=== PATIENT | male | born 1990 | race Caucasian/White ===

== ENCOUNTER 2022-04-30 08:33 | Outpatient (RCR) | payer OTHER, SELFPAY ==
[2022-04-30 09:18] VITALS: BP 130/77; PULSE 69; TEMP 36.6
--- NOTE | 2022-04-30 10:00 | HP.PCM_ITS ---
History of Present Illness Date of Service: 04/30/22 Chief Complaint: Left anterior lower extremity wound History of Wound: Patient is a 31-year-old male who presents to the wound care center for history of a left anterior lower extremity wound 2.5 years duration. Patient states that he was kicked by a horse creating a wound. Patient states the wound has failed to progress in healing despite various home remedies. He was following with his primary care physician and following recommendations for local wound care. Following failed progress of his wound he was referred to the wound care center for further intervention. ROS Constitutional Constitutional: Denies anorexia, chills, fatigue or fever(s) Eyes Eyes: Denies blurry vision, change in vision or double vision ENT HEENT: Denies dysphagia, headache(s) or nasal congestion Cardiovascular Cardiovascular: Denies chest pain, claudication or dyspnea Respiratory/Chest Respiratory/Chest: Denies cough, hemoptysis or shortness of breath with exertion Gastrointestinal Gastrointestinal: Denies abdominal pain, constipation, diarrhea, nausea or vomiting Genitourinary Genitourinary: Denies dysuria or hematuria Musculoskeletal Musculoskeletal: Denies joint pain, joint stiffness or joint swelling Integumentary Integumentary: Denies erythema, jaundice or rash Neurologic Neurologic: Denies dizziness, seizures or syncope Psychiatric Psychiatric: Denies anxiety or depression Endocrine Endocrinology: Denies cold intolerance, heat intolerance, polydipsia or polyuria Hematologic/Lymphatic Hematologic/Lymphatic: Denies easy bleeding or easy bruising Vital Signs Vital Signs Vital Signs: 04/30/22 09:18 Temperature 97.8 F Temperature Source Temporal Pulse Rate 69 Blood Pressure 130/77 H Blood Pressure Mean 94 Blood Pressure Source Monitor Blood Pressure Position Semi-Fowlers Blood Pressure Location Right Arm Physical Exam Const alert, oriented x3 and no apparent distress General Appearance: cooperative HEENT normocephalic Eyes General Eye: normal appearance of both eyes Neck General: normal visual inspection Lymph Lymphatic: no lymphadenopathy noted and no lymphedema noted Resp normal respiratory effort Cardio regular rate and regular rhythm Extremity normal capillary refill, no joint enlargement, no calf tenderness and no pedal edema Extremity Narrative: Weakly palpable DP and PT pulses of the left lower extremity with normal capillary fill time. There are 2 stable eschars noted to the anterior lower extremity 1 proximal and 1 distal. The distal eschar is friable and easily removable. There is hemosiderin deposition noted to the anterior lower extremity with torturous veins noted to the anterior medial calf and the lateral ankle with mild nonpitting edema noted to the left lower extremity. Skin skin turgor normal and no jaundice General Skin Exam: venous stasis and dermatitis Wound Narrative: There are 2 stable eschars noted to the anterior lower extremity 1 proximal and 1 distal. The distal eschar is friable and easily removable measuring 1.1 cm x 0.7 cm x 0.2 cm. There is hemosiderin deposition noted to the anterior lower extremity with torturous veins noted to the anterior medial calf and the lateral ankle with mild nonpitting edema noted to the left lower extremity. Neuro oriented x3 and moves all extremities Debridement Note Debridement Note Wound debrided: Left anterior lower extremity Laterality: Left Wound Grade/Stage: Montes stage I Type of Debridement: Excisional debridement Anesthesia Used: 5% Lidocaine Gel Depth: Down to and including healthy tissue and in the subcutaneous layer Percentage of wound debrided: 100 Instrument Used: 3mm curette Tissue Removed: Fibrous, devitalized subcutaneous, biofilm, slough Severity: Fat Layer Exposed Amount of bleeding with debridement: Mild Bleeding Controlled with: Compression and gauze Patient tolerated procedure: Patient tolerated procedure well Post-Debridement Measurements and Additional Note: Post-Debridement Measurements/Treatment - Nurse 1 - General Ulcer Assessment Start: 04/30/22 09:18 Freq: Status: Active Protocol: MACEY Activity Type Activity Date Activity User E-sign Co-sign Detail Recorded Client Recorded Date Recorded By Document 04/30/22 09:18 TARAH [id number] 04/30/22 09:23 TARAH 04/30/22 09:18 - Today's Visit Information Type of service Initial Visit Arrival Mode Ambulatory Patient Identification Verified (Name & Yes ) Vital Signs Temperature (97.8 F-99.1 F) 97.8 F Temperature Source Temporal Pulse Rate (60-100) 69 Pulse Location Monitor Blood Pressure (90/60-120/80) 130/77 H Blood Pressure Mean 94 Source Monitor Position Semi-Fowlers Blood Pressure Location Right Arm History Since Last Visit- (Skip if this is Patient's initial visit) Have you changed medications since your No last visit? Any new allergies or adverse reactions No Had a fall/change in ADL's that may No increase risk of falls Signs or symptoms of abuse and/or No neglect since last visit Have you been in the hospital since your No last visit? Has dressing in place as prescribed No Has compression in place as prescribed N/A Has offloadiing in place as prescribed N/A Experienced any changes in pain level or No management Left Footwear Regular Shoe Right Footwear Regular Shoe Pain Scale: 0-10 Numeric Is Patient Pain Free? Yes WC - Nurse 1 - General Ulcer Measurement Start: 04/30/22 09:18 Freq: Status: Active Protocol: Activity Type Activity Date Activity User E-sign Co-sign Detail Recorded Client Recorded Date Recorded By Document 04/30/22 09:18 KR [id number] 04/30/22 09:23 KR 04/30/22 09:18 Wound Center Nurse 1 #1 Left Martinez -Current Size (cm) - Length 4 -Current Size (cm) - Width 5 -Current Size (cm) - Depth 0.1 -Total Square Cm 20 -Exudate Amt Small -Exudate Type Serosanguineous -Wound Margin Distinct, Outline Attached -Granulation Amt None Present (0 %) -Necrosis Amt None Present (0 %) -Texture (Kathryn-wound Skin Appearance) Assessed, Scarring -Moisture (Kathryn-wound Skin Appearance) Assessed,Dry/ Scaly -Color (Kathryn-wound Skin Appearance) No Abnormality, Assessed -Temperature (Kathryn-wound Skin No Abnormality Appearance) (Pt Warm) -Tenderness on Palpation (Kathryn-wound No Skin Appearance) -Ulcer Cleansing Rinsed/ Irrigated with Saline -Foul Odor after Cleansing No -Anesthetic Used 5% Lidocaine Gel Left Calf (cm) 40.1 Left Ankle (cm) 23.6 Assessment/Plan Assessment/Plan (1) Non-pressure chronic ulcer of left calf with fat layer exposed: CODE(S): L97.222 - Non-pressure chronic ulcer of left calf with fat layer exposed (2) Venous insufficiency (chronic) (peripheral): CODE(S): I87.2 - Venous insufficiency (chronic) (peripheral) (3) Varicose veins of left leg with edema: CODE(S): I83.892 - Varicose veins of left lower extremity with other complications PLAN: Plan Patient seen and evaluated It is noted he has hemosiderin deposition to the anterior lower extremity with torturous veins noted to the anterior medial calf and the lateral ankle with mild nonpitting edema noted to the left lower extremity. Left anterior lower ex tremity ulceration measures 1.1 cm x 0.7 cm x 0.2 cm. Ulceration underwent debridement as noted in clinical panel above. No signs of infection to the ulcerative site. Collagen powder PMHB dressing applied to left lower extremity with Unna boot. Patient was instructed not to get the dressings wet and apply a cast bag during shower. Due to his chronic venous insufficiency/stasis with torturous veins I am making referral to vascular specialist Dr. Wu for further intervention. Patient instructed to continue to elevate lower extremities at all times of rest. And keep dressings clean, dry, and intact. He will follow-up to the wound care center in 1 week for continued local wound care. He may call sooner with any questions or concerns Note: [employer] speech recognition manager process improvement software was used to create portions of this document. Sound-alike and misspelled words, as well as other manager process improvement errors may be contained in the documentation. The problems addressed require a low medical decision making level which includes two or more minor problems, a stable chronic illness, or an acute uncomplicated illness or injury. The medical decision making level is low. There is noted low risk of morbidity after considering this treatment plan and diagnostic data.
== END 2022-05-01 23:59 | disposition home or self-care (01) ==
LOC: WC 08:33
PROVIDERS: PCP Family Medicine; Visit Provider Student in an Organized Health Care Education/Training Program
DX: I83.022 Varicose veins of left lower extremity with ulcer of calf (principal); L97.222 Non-pressure chronic ulcer of left calf with fat layer exposed
CPT/HCPCS: 11042; 29580; 99213; G0463

== ENCOUNTER 2022-05-28 11:15 | Outpatient (RCR) | payer OTHER, SELFPAY ==
[2022-05-02 01:51] VITALS: BP 130/77; PULSE 69; TEMP 36.6
[2022-05-07 09:37] VITALS: BP 138/65; PULSE 66; TEMP 36.2
--- NOTE | 2022-05-07 10:04 | PN.PCM_ITS ---
History of Present Illness Date of Service: 05/07/22 Chief Complaint: Left anterior lower extremity wound History of Wound: Patient is a 31-year-old male who presents to the wound care center for history of a left anterior lower extremity wound 2.5 years duration. Patient states that he was kicked by a horse creating a wound. Patient states the wound has failed to progress in healing despite various home remedies. He was following with his primary care physician and following recommendations for local wound care. Following failed progress of his wound he was referred to the wound care center for further intervention. Subjective Subjective Patient is a 31-year-old male who presents for follow-up of a left anterior lower extremity ulceration. He has chronic venous insufficiency with torturous varicose veins. Patient states that he just saw Dr. Wu, vascular specialist who recommended aggressive compression. Patient denies any constitutional symptoms today. Patient denies any further complaints today. Objective Data Objective Data Vital Signs: Vital Signs Temp Pulse BP 97.2 F L 66 138/65 H 05/07/22 09:37 05/07/22 09:37 05/07/22 09:37 Physical Exam Const alert, oriented x3 and no apparent distress General Appearance: cooperative HEENT normocephalic Eyes General Eye: normal appearance of both eyes Neck General: normal visual inspection Lymph Lymphatic: no lymphadenopathy noted and no lymphedema noted Resp normal respiratory effort Cardio regular rate and regular rhythm Extremity normal capillary refill, no joint enlargement and no calf tenderness Extremity Narrative: Weakly palpable DP and PT pulses of the left lower extremity with normal capillary fill time.? There are 2 stable eschars noted to the anterior lower extremity 1 proximal and 1 distal.? The distal eschar is friable and easily removable.? There is hemosiderin deposition noted to the anterior lower extremity with torturous veins noted to the anterior medial calf and the lateral ankle with mild nonpitting edema noted to the left lower extremity. Skin no rashes or lesions noted, skin turgor normal and no jaundice General Skin Exam: venous stasis and dermatitis Wound Narrative: There are 2 stable eschars noted to the anterior lower extremity 1 proximal and 1 distal.? The distal eschar is friable and easily removable measuring 1.0 cm x 0.5 cm x 0.2 cm.? There is hemosiderin deposition noted to the anterior lower extremity with torturous veins noted to the anterior medial calf and the lateral ankle with mild nonpitting edema noted to the left lower extremity. Neuro oriented x3 and moves all extremities Debridement Note Debridement Note Wound debrided: Left anterior lower extremity Laterality: Left Wound Grade/Stage: Montes stage I Type of Debridement: Excisional debridement Anesthesia Used: 5% Lidocaine Gel Depth: Down to and including healthy tissue and in the subcutaneous layer Percentage of wound debrided: 100 Instrument Used: 3mm curette Tissue Removed: Fibrous, devitalized subcutaneous, biofilm, slough Severity: Fat Layer Exposed Amount of bleeding with debridement: Mild Bleeding Controlled with: Compression and gauze Patient tolerated procedure: Patient tolerated procedure well Post-Debridement Measurements and Additional Note: Post-Debridement Measurements/Treatment - Nurse 1 - General Ulcer Assessment Start: 05/07/22 09:37 Freq: Status: Active Protocol: MACEY Activity Type Activity Date Activity User E-sign Co-sign Detail Recorded Client Recorded Date Recorded By Document 05/07/22 09:37 TARAH [id number] 05/07/22 09:39 TARAH 05/07/22 09:37 WC - Today's Visit Information Type of service Follow-up Visit (Physician/CLIENT SERVICES DIRECTOR ) Arrival Mode Ambulatory Patient Identification Verified (Name & Yes ) Vital Signs Temperature (97.8 F-99.1 F) 97.2 F L Temperature Source Temporal Pulse Rate (60-100) 66 Pulse Location Monitor Blood Pressure (90/60-120/80) 138/65 H Blood Pressure Mean (mm Hg) 89 Source Monitor Position Sitting Blood Pressure Location Right Arm History Since Last Visit- (Skip if this is Patient's initial visit) Have you changed medications since your No last visit? Any new allergies or adverse reactions No Had a fall/change in ADL's that may No increase risk of falls Signs or symptoms of abuse and/or No neglect since last visit Have you been in the hospital since your No last visit? Has dressing in place as prescribed Yes Has compression in place as prescribed Yes Has offloadiing in place as prescribed N/A Experienced any changes in pain level or No management Left Footwear Regular Shoe Right Footwear Regular Shoe Pain Scale: 0-10 Numeric Is Patient Pain Free? Yes LASHELL - Nurse 1 - General Ulcer Measurement Start: 05/07/22 09:37 Freq: Status: Active Protocol: Activity Type Activity Date Activity User E-sign Co-sign Detail Recorded Client Recorded Date Recorded By Document 05/07/22 09:37 KR [id number] 05/07/22 09:39 TARAH 05/07/22 09:37 Wound Center Nurse 1 #1 Left Martinez -Current Size (cm) - Length 1 -Current Size (cm) - Width 0.6 -Current Size (cm) - Depth 0.2 -Total Square Cm 0.6 -Exudate Amt Medium -Exudate Type Serosanguineous -Wound Margin Distinct, Outline Attached -Granulation Amt Medium (34-66%) -Granulation Quality Schubert,Red -Necrosis Amt Medium (34-66%) -Necrotic Tissue Type Adherent Slough -Texture (Kathryn-wound Skin Appearance) Assessed, Scarring -Moisture (Kathryn-wound Skin Appearance) No Abnormality, Assessed -Color (Kathryn-wound Skin Appearance) No Abnormality, Assessed -Temperature (Kathryn-wound Skin No Abnormality Appearance) (Pt Warm) -Tenderness on Palpation (Kathryn-wound No Skin Appearance) -Ulcer Cleansing Soap and Water -Foul Odor after Cleansing No -Anesthetic Used 5% Lidocaine Gel Assessment/Plan Assessment/Plan (1) Non-pressure chronic ulcer of left calf with fat layer exposed: CODE(S): L97.222 - Non-pressure chronic ulcer of left calf with fat layer exposed (2) Venous insufficiency (chronic) (peripheral): CODE(S): I87.2 - Venous insufficiency (chronic) (peripheral) (3) Varicose veins of left leg with edema: CODE(S): I83.892 - Varicose veins of left lower extremity with other complications PLAN: Plan Patient seen and evaluated It is noted he has hemosiderin deposition to the anterior lower extremity with torturous veins noted to the anterior medial calf and the lateral ankle with mild nonpitting edema noted to the left lower extremity.? Left anterior lower extremity ulceration measures 1.0 cm x 0.5 cm x 0.2 cm.? Ulceration demonstrates reduction in size versus previous visit. Ulceration underwent debridement as noted in clinical panel above.? No signs of infection to the ulcerative site.? Collagen powder PMHB dressing applied to left lower extremity with 2 layer compression dressing.? Patient was instructed not to get the dressings wet and apply a cast bag during shower. Patient saw Dr. Wu, vascular specialist who recommended aggressive compression to address his chronic venous insufficiency with torturous varicose veins. Dr. Wu will perform venous studies. Patient instructed to continue to elevate lower extremities at all times of rest.? And keep dressings clean, dry, and intact. He will follow-up to the wound care center in 1 week for continued local wound care.? He may call sooner with any questions or concerns Note: [employer] speech recognition rail car loader software was used to create portions of this document. Sound-alike and misspelled words, as well as other rail car loader errors may be contained in the documentation.? The problems addressed require a low medical decision making level which includes two or more minor problems, a stable chronic illness, or an acute uncom plicated illness or injury.? The medical decision making level is low.? There is noted low risk of morbidity after considering this treatment plan and diagnostic data.
[2022-05-14 10:52] VITALS: BP 122/75; PULSE 72; TEMP 36.4
--- NOTE | 2022-05-14 11:51 | PN.PCM_ITS ---
History of Present Illness Date of Service: 05/14/22 Chief Complaint: Left anterior lower extremity wound History of Wound: Patient is a 31-year-old male who presents to the wound care center for history of a left anterior lower extremity wound 2.5 years duration. Patient states that he was kicked by a horse creating a wound. Patient states the wound has failed to progress in healing despite various home remedies. He was following with his primary care physician and following recommendations for local wound care. Following failed progress of his wound he was referred to the wound care center for further intervention. Subjective Subjective Patient is a 31-year-old male who presents for follow-up of a left anterior lower extremity ulceration.? He has chronic venous insufficiency with torturous varicose veins. He has been applying collagen powder and PHMB dressing daily. Patient denies any constitutional symptoms today.? Patient denies any further complaints today. Objective Data Objective Data Vital Signs: Vital Signs Temp Pulse BP 97.6 F L 72 122/75 H 05/14/22 10:52 05/14/22 10:52 05/14/22 10:52 Physical Exam Const alert, oriented x3 and no apparent distress General Appearance: cooperative HEENT normocephalic Eyes General Eye: normal appearance of both eyes Neck General: normal visual inspection Lymph Lymphatic: no lymphadenopathy noted and no lymphedema noted Resp normal respiratory effort Cardio regular rate and regular rhythm Extremity normal capillary refill, no joint enlargement and no calf tenderness Extremity Narrative: Weakly palpable DP and PT pulses of the left lower extremity with normal capillary fill time.? There are 2 stable eschars noted to the anterior lower extremity 1 proximal and 1 distal.? The distal eschar is friable and easily removable.? There is hemosiderin deposition noted to the anterior lower extremity with torturous veins noted to the anterior medial calf and the lateral ankle with mild nonpitting edema noted to the left lower extremity. Skin no rashes or lesions noted, skin turgor normal and no jaundice General Skin Exam: venous stasis and dermatitis Wound Narrative: There are 2 stable eschars noted to the anterior lower extremity 1 proximal.? Ulceration left anterior lower extremity. No signs of infection. Healthy granular base.? There is hemosiderin deposition noted to the anterior lower extremity with torturous veins noted to the anterior medial calf and the lateral ankle with mild nonpitting edema noted to the left lower extremity. Neuro oriented x3 and moves all extremities Debridement Note Debridement Note Post-Debridement Measurements and Additional Note: Post-Debridement Measurements/Treatment WC - Nurse 1 - General Ulcer Assessment Start: 05/07/22 09:37 Freq: Status: Active Protocol: MACEY Activity Type Activity Date Activity User E-sign Co-sign Detail Recorded Client Recorded Date Recorded By Document 05/07/22 09:37 TARAH [id number] 05/07/22 09:39 KR Document 05/14/22 10:52 TARAH [id number] 05/14/22 10:55 KR 05/07/22 05/14/22 09:37 10:52 WC - Today's Visit Information Type of service Follow-up Visit Follow-up Visit (Physician/CRANIOLOGIST (Physician/CRANIOLOGIST ) ) Arrival Mode Ambulatory Ambulatory Patient Identification Verified (Name & Yes Yes ) Vital Signs Temperature (97.8 F-99.1 F) 97.2 F L 97.6 F L Temperature Source Temporal Temporal Pulse Rate (60-100) 66 72 Pulse Location Monitor Monitor Blood Pressure (90/60-120/80) 138/65 H 122/75 H Blood Pressure Mean (mm Hg) 89 90 Source Monitor Monitor Position Sitting Semi-Fowlers Blood Pressure Location Right Arm Right Arm History Since Last Visit- (Skip if this is Patient's initial visit) Have you changed medications since your No No last visit? Any new allergies or adverse reactions No No Had a fall/change in ADL's that may No No increase risk of falls Signs or symptoms of abuse and/or No No neglect since last visit Have you been in the hospital since your No No last visit? Has dressing in place as prescribed Yes Yes Has compression in place as prescribed Yes Yes Has offloadiing in place as prescribed N/A N/A Experienced any changes in pain level or No No management Left Footwear Regular Shoe Regular Shoe Right Footwear Regular Shoe Regular Shoe Pain Scale: 0-10 Numeric Is Patient Pain Free? Yes Yes - Nurse 1 - General Ulcer Measurement Start: 05/07/22 09:37 Freq: Status: Active Protocol: Activity Type Activity Date Activity User E-sign Co-sign Detail Recorded Client Recorded Date Recorded By Document 05/07/22 09:37 TARAH [id number] 05/07/22 09:39 KR Document 05/14/22 10:52 KR [id number] 05/14/22 10:55 KR 05/07/22 05/14/22 09:37 10:52 Wound Center Nurse 1 #1 Left Martinez -Current Size (cm) - Length 1 6.5 -Current Size (cm) - Width 0.6 1 -Current Size (cm) - Depth 0.2 0.2 -Total Square Cm 0.6 6.5 -Exudate Amt Medium Medium -Exudate Type Serosanguineous Serosanguineous -Wound Margin Distinct, Distinct, Outline Outline Attached Attached -Granulation Amt Medium (34-66%) Medium (34-66%) -Granulation Quality Almedia,Red Almedia -Necrosis Amt Medium (34-66%) Small (1-33%) -Necrotic Tissue Type Adherent Slough Adherent Slough -Texture (Kathryn-wound Skin Appearance) Assessed, No Abnormality, Scarring Scarring -Moisture (Kathryn-wound Skin Appearance) No Abnormality, No Abnormality, Assessed Assessed -Color (Kathryn-wound Skin Appearance) No Abnormality, No Abnormality, Assessed Assessed -Temperature (Kathryn-wound Skin No Abnormality No Abnormality Appearance) (Pt Warm) (Pt Warm) -Tenderness on Palpation (Kathryn-wound No No Skin Appearance) -Ulcer Cleansing Soap and Water Rinsed/ Irrigated with Saline -Foul Odor after Cleansing No No -Anesthetic Used 5% Lidocaine 5% Lidocaine Gel Gel WC - Nurse 2 - General Ulcer CM Notes Start: 05/07/22 09:37 Freq: Status: Active Protocol: Activity Type Activity Date Activity User E-sign Co-sign Detail Recorded Client Recorded Date Recorded By Document 05/07/22 12:37 SONIA [id number] 05/07/22 12:38 SONIA 05/07/22 12:37 Wound Center Nurse 2 -Time 10:20 -Correct Patient Yes -Correct Side, Site, Position Yes -Correct Procedure Yes -Procedure Performed Yes -Type of Procedure Debridement -Clinical Debridement Subcutaneous -Tissue Removed Subcutaneous -Post Debridement (cm) - Length 1.0 -Post Debridement (cm) - Width 0.5 -Post Debridement (cm) - Depth 0.1 -Total Square (Post) (cm) 0.50 -Area of Debridement (cm) - Length 1.0 -Area of Debridement (cm) - Width 0.5 -Total Square (Area) (cm) 0.50 -Tunneling No -Undermining/Tunneling No -Circular Undermining No -Wound/Ulcer Outcome Not Healed -Ulcer Cleansing Rinsed/ Irrigated with Saline -Foul Odor after Cleansing No -Bioengineered Tissue No -Bleeding Controlled with Pressure -Treatment Response Procedure Tolerated Well -Debridement - Subq, 1st 20sq cm Yes Pain Scale: 0-10 Numeric Is Patient Pain Free? Yes WC - Nurse 3 - General Ulcer D/C NN Start: 05/07/22 09:37 Freq: Status: Active Protocol: Activity Type Activity Date Activity User E-sign Co-sign Detail Recorded Client Recorded Date Recorded By Document 05/07/22 11:09 TARAH [id number] 05/07/22 11:10 TARAH 05/07/22 11:09 Wound Care Nurse 3 #1 Left Martinez -Ulcer Cleansing Rinsed/ Irrigated with Saline -Foul Odor after Cleansing No -Negative Pressure Wound Therapy N/A -Other Dressing collagen PMB -Primary Dressing Covered/Secured with Dry Gauze Right -Multi-Layered Wrap Application Multi-Layer Comp - Right ($ ) Pain Scale: 0-10 Numeric Is Patient Pain Free? Yes WC - Visit Discharge Discharge Condition Stable Ambulatory Status Ambulatory Transportation Private Auto Medication Reconcilliation completed & Yes provided to patient/care provider Clinical Summary of Care Provided Yes Assessment/Plan Assessment/Plan (1) Non-pressure chronic ulcer of left calf with fat layer exposed: CODE(S): L97.222 - Non-pressure chronic ulcer of left calf with fat layer exposed (2) Venous insufficiency (chronic) (peripheral): CODE(S): I87.2 - Venous insufficiency (chronic) (peripheral) (3) Varicose veins of left leg with edema: CODE(S): I83.892 - Varicose veins of left lower extremity with other complications PLAN: Plan Patient seen and evaluated It is noted he has hemosiderin deposition to the anterior lower extremity with torturous veins noted to the anterior medial calf and the lateral ankle with mild nonpitting edema noted to the left lower extremity.? Left anterior lower extremity ulceration measures 1.3 cm x 0.9 cm x 0.1 cm.? Ulceration demonstrates reduction in size versus previous visit and is granulating in well. Ulceration underwent debridement as noted in clinical panel above.? No signs of infection to the ulcerative site.? Collagen powder PMHB dressing applied to left lower extremity with 2 layer compression dressing.? Patient was instructed not to get the dressings wet and apply a cast bag during shower. Patient saw Dr. Wu, vascular specialist who recommended aggressive compression to address his chronic venous insufficiency with torturous varicose veins. Dr. Wu will perform venous studies. Patient instructed to continue to elevate lower extremities at all times of rest.? And keep dressings clean, dry, and intact. He will follow-up to the wound care center in 1 week for continued local wound care.? He may call sooner with any questions or concerns Note: Scaffold speech recognition food safety field specialist software was used to create portions of this document. Sound-alike and misspelled words, as well as other food safety field specialist errors may be contained in the documentation.? The problems addressed require a low medical decision making level which includes two or more minor problems, a stable chronic illness, or an acute uncomplicated illness or injury.? The medical decision making level is low.? There is noted low risk of morbidity after considering this treatment plan and diagnostic data.
--- NOTE | 2022-05-21 10:54 | PN.PCM_ITS ---
History of Present Illness Date of Service: 05/21/22 Chief Complaint: Left anterior lower extremity wound History of Wound: Patient is a 31-year-old male who presents to the wound care center for history of a left anterior lower extremity wound 2.5 years duration. Patient states that he was kicked by a horse creating a wound. Patient states the wound has failed to progress in healing despite various home remedies. He was following with his primary care physician and following recommendations for local wound care. Following failed progress of his wound he was referred to the wound care center for further intervention. Subjective Subjective Patient is a 31-year-old male who presents for follow-up of a left anterior lower extremity ulceration.? He has chronic venous insufficiency with torturous varicose veins. He has been applying continuing to apply collagen powder and PHMB dressing daily. He denies any constitutional symptoms today.?He denies any further complaints today. Objective Data Objective Data Vital Signs: Vital Signs Temp Pulse BP 97.6 F L 72 122/75 H 05/14/22 10:52 05/14/22 10:52 05/14/22 10:52 Physical Exam Const alert, oriented x3 and no apparent distress General Appearance: cooperative HEENT normocephalic Eyes General Eye: normal appearance of both eyes Neck General: normal visual inspection Lymph Lymphatic: no lymphadenopathy noted and no lymphedema noted Resp normal respiratory effort Cardio regular rate and regular rhythm Extremity normal capillary refill, no joint enlargement and no calf tenderness Extremity Narrative: Weakly palpable DP and PT pulses of the left lower extremity with normal capillary fill time.? There are 2 stable eschars noted to the anterior lower extremity 1 proximal and 1 distal.? The distal eschar is friable and easily removable.? There is hemosiderin deposition noted to the anterior lower extremity with torturous veins noted to the anterior medial calf and the lateral ankle with mild nonpitting edema noted to the left lower extremity. Skin no rashes or lesions noted, skin turgor normal and no jaundice General Skin Exam: venous stasis and dermatitis Wound Narrative: There are 2 stable eschars noted to the anterior lower extremity 1 proximal.? Ulceration left anterior lower extremity. No signs of infection. Healthy granular base.? There is hemosiderin deposition noted to the anterior lower extremity with torturous veins noted to the anterior medial calf and the lateral ankle with mild nonpitting edema noted to the left lower extremity. Neuro oriented x3 and moves all extremities Debridement Note Debridement Note Wound debrided: Left anterior lower extremity Laterality: Left Wound Grade/Stage: Montes stage I Type of Debridement: Excisional debridement Anesthesia Used: 5% Lidocaine Gel Depth: Down to and including healthy tissue and in the subcutaneous layer Percentage of wound debrided: 100 Instrument Used: 3mm curette Tissue Removed: Fibrous, devitalized subcutaneous, biofilm, slough Severity: Fat Layer Exposed Amount of bleeding with debridement: Mild Bleeding Controlled with: Compression and gauze Patient tolerated procedure: Patient tolerated procedure well Post-Debridement Measurements and Additional Note: Post-Debridement Measurements/Treatment - Nurse 1 - General Ulcer Assessment Start: 05/07/22 09:37 Freq: Status: Active Protocol: MACEY Activity Type Activity Date Activity User E-sign Co-sign Detail Recorded Client Recorded Date Recorded By Document 05/07/22 09:37 TARAH [id number] 05/07/22 09:39 KR Document 05/14/22 10:52 TARAH [id number] 05/14/22 10:55 KR 05/07/22 05/14/22 09:37 10:52 - Today's Visit Information Type of service Follow-up Visit Follow-up Visit (Physician/HEALTH CARE FACILITY ADMINISTRATOR (Physician/HEALTH CARE FACILITY ADMINISTRATOR ) ) Arrival Mode Ambulatory Ambulatory Patient Identification Verified (Name & Yes Yes ) Vital Signs Temperature (97.8 F-99.1 F) 97.2 F L 97.6 F L Temperature Source Temporal Temporal Pulse Rate (60-100) 66 72 Pulse Location Monitor Monitor Blood Pressure (90/60-120/80) 138/65 H 122/75 H Blood Pressure Mean (mm Hg) 89 90 Source Monitor Monitor Position Sitting Semi-Fowlers Blood Pressure Location Right Arm Right Arm History Since Last Visit- (Skip if this is Patient's initial visit) Have you changed medications since your No No last visit? Any new allergies or adverse reactions No No Had a fall/change in ADL's that may No No increase risk of falls Signs or symptoms of abuse and/or No No neglect since last visit Have you been in the hospital since your No No last visit? Has dressing in place as prescribed Yes Yes Has compression in place as prescribed Yes Yes Has offloadiing in place as prescribed N/A N/A Experienced any changes in pain level or No No management Left Footwear Regular Shoe Regular Shoe Right Footwear Regular Shoe Regular Shoe Pain Scale: 0-10 Numeric Is Patient Pain Free? Yes Yes - Nurse 1 - General Ulcer Measurement Start: 05/07/22 09:37 Freq: Status: Active Protocol: Activity Type Activity Date Activity User E-sign Co-sign Detail Recorded Client Recorded Date Recorded By Document 05/07/22 09:37 KR [id number] 05/07/22 09:39 KR Document 05/14/22 10:52 KR [id number] 05/14/22 10:55 KR 05/07/22 05/14/22 09:37 10:52 Wound Center Nurse 1 #1 Left Martinez -Current Size (cm) - Length 1 6.5 -Current Size (cm) - Width 0.6 1 -Current Size (cm) - Depth 0.2 0.2 -Total Square Cm 0.6 6.5 -Exudate Amt Medium Medium -Exudate Type Serosanguineous Serosanguineous -Wound Margin Distinct, Distinct, Outline Outline Attached Attached -Granulation Amt Medium (34-66%) Medium (34-66%) -Granulation Quality [place],Red [place] -Necrosis Amt Medium (34-66%) Small (1-33%) -Necrotic Tissue Type Adherent Slough Adherent Slough -Texture (Kathryn-wound Skin Appearance) Assessed, No Abnormality, Scarring Scarring -Moisture (Kathryn-wound Skin Appearance) No Abnormality, No Abnormality, Assessed Assessed -Color (Kathryn-wound Skin Appearance) No Abnormality, No Abnormality, Assessed Assessed -Temperature (Kathryn-wound Skin No Abnormality No Abnormality Appearance) (Pt Warm) (Pt Warm) -Tenderness on Palpation (Kathryn-wound No No Skin Appearance) -Ulcer Cleansing Soap and Water Rinsed/ Irrigated with Saline -Foul Odor after Cleansing No No -Anesthetic Used 5% Lidocaine 5% Lidocaine Gel Gel WC - Nurse 2 - General Ulcer CM Notes Start: 05/07/22 09:37 Freq: Status: Active Protocol: Activity Type Activity Date Activity User E-sign Co-sign Detail Recorded Client Recorded Date Recorded By Document 05/07/22 12:37 PL [id number] 05/07/22 12:38 PL Document 05/14/22 12:45 PL [id number] 05/14/22 12:47 PL 05/07/22 05/14/22 12:37 12:45 Wound Center Nurse 2 #1 Left Martinez -Time 10:20 11:18 -Correct Patient Yes Yes -Correct Side, Site, Position Yes Yes -Correct Procedure Yes Yes -Procedure Performed Yes Yes -Type of Procedure Debridement Debridement -Clinical Debridement Subcutaneous Subcutaneous -Tissue Removed Subcutaneous Subcutaneous -Post Debridement (cm) - Length 1.0 1.3 -Post Debridement (cm) - Width 0.5 0.9 -Post Debridement (cm) - Depth 0.1 0.1 -Total Square (Post) (cm) 0.50 1.17 -Area of Debridement (cm) - Length 1.0 1.3 -Area of Debridement (cm) - Width 0.5 0.9 -Total Square (Area) (cm) 0.50 1.17 -Tunneling No No -Undermining/Tunneling No No -Circular Undermining No No -Wound/Ulcer Outcome Not Healed Not Healed -Ulcer Cleansing Rinsed/ Rinsed/ Irrigated with Irrigated with Saline Saline -Foul Odor after Cleansing No No -Bioengineered Tissue No No -Bleeding Controlled with Pressure Pressure -Treatment Response Procedure Procedure Tolerated Well Tolerated Well -Debridement - Subq, 1st 20sq cm Yes Yes Pain Scale: 0-10 Numeric Is Patient Pain Free? Yes Yes - Nurse 3 - General Ulcer D/C NN Start: 05/07/22 09:37 Freq: Status: Active Protocol: Activity Type Activity Date Activity User E-sign Co-sign Detail Recorded Client Recorded Date Recorded By Document 05/07/22 11:09 KR [id number] 05/07/22 11:10 KR Document 05/14/22 08:03 PL [id number] 05/15/22 08:08 05/07/22 05/14/22 11:09 08:03 Wound Care Nurse 3 #1 Left Martinez -Ulcer Cleansing Rinsed/ Irrigated with Saline -Foul Odor after Cleansing No -Negative Pressure Wound Therapy N/A -Other Dressing collagen PMB -Primary Dressing Covered/Secured with Dry Gauze Right -Multi-Layered Wrap Application Multi-Layer Multi-Layer Comp - Right ($ Comp - Left ($) ) Pain Scale: 0-10 Numeric Is Patient Pain Free? Yes Yes - Visit Discharge Discharge Condition Stable Ambulatory Status Ambulatory Transportation Private Auto Medication Reconcilliation completed & Yes provided to patient/care provider Clinical Summary of Care Provided Yes Assessment/Plan Assessment/Plan (1) Non-pressure chronic ulcer of left calf with fat layer exposed: CODE(S): L97.222 - Non-pressure chronic ulcer of left calf with fat layer exposed (2) Venous insufficiency (chronic) (peripheral): CODE(S): I87.2 - Venous insufficiency (chronic) (peripheral) (3) Varicose veins of left leg with edema: CODE(S): I83.892 - Varicose veins of left lower extremity with other complications PLAN: Plan Patient seen and evaluated It is noted he has hemosiderin deposition to the anterior lower extremity with torturous veins noted to the anterior medial calf and the lateral ankle with mild nonpitting edema noted to the left lower extremity. Edema improving with compression dressing.? Left anterior lower extremity ulceration measures 0.8 cm x 0.7 cm x 0.1 cm.? Ulceration demonstrates reduction in size versus previous visit and is granulating in well. Ulceration underwent debridement as noted in clinical panel above.? No signs of infection to the ulcerative site.? Collagen powder PMHB dressing applied to left lower extremity with 2 layer compression dressing.? Patient was instructed not to get the dressings wet and apply a cast bag during shower. Patient saw Dr. Wu, vascular specialist who recommended aggressive compression to address his chronic venous insufficiency with torturous varicose veins. Patient has appointment with Dr. Wu and will have venous studies in 3 weeks. Patient instructed to continue to elevate lower extremities at all times of rest.? And keep dressings clean, dry, and intact. He will follow-up to the wound care center in 2 weeks for continued local wound care.? He may call sooner with any questions or concerns Note: Brass [employer]key speech recognition ticket marker software was used to create portions of this document. Sound-alike and misspelled words, as well as other ticket marker errors may be contained in the documentation.?
[2022-05-21 11:33] VITALS: BP 150/86; PULSE 75; TEMP 36.1
[2022-05-28 11:36] VITALS: BP 134/83; PULSE 67; RESP 16; TEMP 36.5
== END 2022-06-01 23:59 | disposition home or self-care (01) ==
LOC: WC 11:15
PROVIDERS: PCP Family Medicine; Visit Provider Student in an Organized Health Care Education/Training Program
DX: I87.2 Venous insufficiency (chronic) (peripheral) (principal); L97.222 Non-pressure chronic ulcer of left calf with fat layer exposed; I83.022 Varicose veins of left lower extremity with ulcer of calf; R60.9 Edema, unspecified
CPT/HCPCS: 11042; 29581

== ENCOUNTER 2022-06-11 09:15 | Outpatient (RCR) | payer OTHER, SELFPAY ==
[2022-06-02 00:39] VITALS: BP 134/83; PULSE 67; RESP 16; TEMP 36.5
[2022-06-04 08:36] VITALS: BP 137/84; PULSE 73; TEMP 36.1
--- NOTE | 2022-06-04 09:08 | PCM.WC.PN ---
History of Present Illness Date of Service: 06/04/22 Chief Complaint: Left anterior lower extremity wound History of Wound: Patient is a 31-year-old male who presents to the wound care center for history of a left anterior lower extremity wound 2.5 years duration. Patient states that he was kicked by a horse creating a wound. Patient states the wound has failed to progress in healing despite various home remedies. He was following with his primary care physician and following recommendations for local wound care. Following failed progress of his wound he was referred to the wound care center for further intervention. Subjective Subjective Patient is a 31-year-old male who presents for follow-up of a left anterior lower extremity ulceration.? He has chronic venous insufficiency with torturous varicose veins. He has been applying continuing to apply collagen powder and PHMB dressing daily. He notes good progression and reduction in his wound size. He denies any constitutional symptoms today.?He denies any further complaints today. Objective Data Objective Data Vital Signs: Vital Signs Temp Pulse Resp BP 97.0 F L 73 16 137/84 H 06/04/22 08:36 06/04/22 08:36 06/02/22 00:39 06/04/22 08:36 Physical Exam Const alert, oriented x3 and no apparent distress General Appearance: comfortable HEENT normocephalic Eyes General Eye: normal appearance of both eyes Neck General: normal visual inspection Lymph Lymphatic: no lymphadenopathy noted and no lymphedema noted Resp normal respiratory effort Cardio regular rate and regular rhythm Extremity Extremity Narrative: Weakly palpable DP and PT pulses of the left lower extremity with normal capillary fill time.?There is hemosiderin deposition noted to the anterior lower extremity with torturous veins noted to the anterior medial calf and the lateral ankle with mild nonpitting edema noted to the left lower extremity. Skin no rashes or lesions noted, skin turgor normal and no jaundice General Skin Exam: venous stasis and dermatitis Wound Narrative: Ulceration left anterior lower extremity. No signs of infection. Healthy granular base.? There is hemosiderin deposition noted to the anterior lower extremity with torturous veins noted to the anterior medial calf and the lateral ankle with mild nonpitting edema noted to the left lower extremity. Neuro oriented x3 and moves all extremities Debridement Note Debridement Note Wound debrided: Left lower anterior extremity Laterality: Left Wound Grade/Stage: Montes stage I Type of Debridement: Excisional debridement Anesthesia Used: 5% Lidocaine Gel Depth: Down to and including healthy tissue and in the subcutaneous layer Percentage of wound debrided: 100 Instrument Used: 3mm curette Tissue Removed: Fibrous, devitalized subcutaneous, biofilm, slough Severity: Fat Layer Exposed Amount of bleeding with debridement: Mild Bleeding Controlled with: Compression and gauze Patient tolerated procedure: Patient tolerated procedure well Post-Debridement Measurements and Additional Note: Post-Debridement Measurements/Treatment LASHELL - Nurse 1 - General Ulcer Assessment Start: 06/04/22 08:36 Freq: Status: Active Protocol: MACEY Activity Type Activity Date Activity User E-sign Co-sign Detail Recorded Client Recorded Date Recorded By Document 06/04/22 08:36 TARAH [id number] 06/04/22 08:37 TARAH 06/04/22 08:36 LASHELL Pompa Today's Visit Information Type of service Follow-up Visit (Physician/COAL CONVEYOR OPERATOR ) Arrival Mode Ambulatory Patient Identification Verified (Name & Yes ) Vital Signs Temperature (97.8 F-99.1 F) 97.0 F L Temperature Source Temporal Pulse Rate (60-100) 73 Pulse Location Monitor Blood Pressure (90/60-120/80) 137/84 H Blood Pressure Mean (mm Hg) 101 Source Manual Position Semi-Fowlers Blood Pressure Location Left Arm History Since Last Visit- (Skip if this is Patient's initial visit) Have you changed medications since your No last visit? Any new allergies or adverse reactions No Had a fall/change in ADL's that may No increase risk of falls Signs or symptoms of abuse and/or No neglect since last visit Have you been in the hospital since your No last visit? Has dressing in place as prescribed Yes Has compression in place as prescribed Yes Has offloadiing in place as prescribed N/A Experienced any changes in pain level or No management Left Footwear Regular Shoe Right Footwear Regular Shoe Pain Scale: 0-10 Numeric Is Patient Pain Free? Yes LASHELL - Nurse 1 - General Ulcer Measurement Start: 06/04/22 08:36 Freq: Status: Active Protocol: Activity Type Activity Date Activity User E-sign Co-sign Detail Recorded Client Recorded Date Recorded By Document 06/04/22 08:36 TARAH [id number] 06/04/22 08:37 TARAH 06/04/22 08:36 Wound Center Nurse 1 #1 Left Martinez -Current Size (cm) - Length 0.6 -Current Size (cm) - Width 0.5 -Current Size (cm) - Depth 0.1 -Total Square Cm 0.30 -Exudate Amt None Present -Exudate Type Serosanguineous -Wound Margin Distinct, Outline Attached -Granulation Amt Large (67-100%) -Granulation Quality Red -Necrosis Amt None Present (0 %) -Texture (Kathryn-wound Skin Appearance) Assessed, Scarring -Moisture (Kathryn-wound Skin Appearance) No Abnormality, Assessed -Color (Kathryn-wound Skin Appearance) No Abnormality, Assessed -Temperature (Kathryn-wound Skin No Abnormality Appearance) (Pt Warm) -Tenderness on Palpation (Kathryn-wound No Skin Appearance) -Ulcer Cleansing Soap and Water -Foul Odor after Cleansing No -Anesthetic Used 5% Lidocaine Gel Left Calf (cm) 38 Left Ankle (cm) 22 Assessment/Plan Assessment/Plan (1) Non-pressure chronic ulcer of left calf with fat layer exposed: CODE(S): L97.222 - Non-pressure chronic ulcer of left calf with fat layer exposed (2) Venous insufficiency (chronic) (peripheral): CODE(S): I87.2 - Venous insufficiency (chronic) (peripheral) (3) Varicose veins of left leg with edema: CODE(S): I83.892 - Varicose veins of left lower extremity with other complications PLAN: Plan Patient seen and evaluated It is noted he has hemosiderin deposition to the anterior lower extremity with torturous veins noted to the anterior medial calf and the lateral ankle with mild nonpitting edema noted to the left lower extremity. Edema improving with compression dressing.? Left anterior lower extremity ulceration measures 0.6 cm x 0.4 cm x 0.1 cm.? Ulceration demonstrates continued reduction in size versus previous visit and is granulating in well. Ulceration underwent debridement as noted in clinical panel above.? No signs of infection to the ulcerative site.? Collagen powder PMHB dressing applied to left lower extremity with 2 layer compression dressing.? Patient was instructed not to get the dressings wet and apply a cast bag during shower. Patient saw Dr. Wu, vascular specialist who recommended aggressive compression to address his chronic venous insufficiency with torturous varicose veins.? Patient has appointment with Dr. Wu and will have venous studies in 1 week. Patient instructed to continue to elevate lower extremities at all times of rest.? And keep dressings clean, dry, and intact. He will follow-up to the wound care center in 1 week for continued local wound care.? He may call sooner with any questions or concerns Note: [employer] speech recognition supervisor coin machine software was used to create portions of this document. Sound-alike and misspelled words, as well as other supervisor coin machine errors may be contained in the documentation.?
[2022-06-11 08:59] VITALS: BP 138/91; PULSE 65; TEMP 36.5
--- NOTE | 2022-06-11 09:05 | PN.PCM_ITS ---
History of Present Illness Date of Service: 06/11/22 Chief Complaint: Left anterior lower extremity wound History of Wound: Patient is a 31-year-old male who presents to the wound care center for history of a left anterior lower extremity wound 2.5 years duration. Patient states that he was kicked by a horse creating a wound. Patient states the wound has failed to progress in healing despite various home remedies. He was following with his primary care physician and following recommendations for local wound care. Following failed progress of his wound he was referred to the wound care center for further intervention. Subjective Subjective Patient is a 31-year-old male who presents for follow-up of a left anterior lower extremity ulceration.? He has chronic venous insufficiency with torturous varicose veins. He has been applying continuing to apply collagen powder and PHMB dressing daily.? He states that he just saw Dr. Wu for his venous studies. He states that he feels his wound has healed today.? He denies any constitutional symptoms today.?He denies any further complaints today. Objective Data Objective Data Vital Signs: Vital Signs Temp Pulse Resp BP 97.7 F L 65 16 138/91 H 06/11/22 08:59 06/11/22 08:59 06/02/22 00:39 06/11/22 08:59 Physical Exam Const alert, oriented x3 and no apparent distress General Appearance: comfortable HEENT normocephalic Eyes General Eye: normal appearance of both eyes Neck General: normal visual inspection Lymph Lymphatic: no lymphadenopathy noted and no lymphedema noted Resp normal respiratory effort Cardio regular rate and regular rhythm Extremity Extremity Narrative: Weakly palpable DP and PT pulses of the left lower extremity with normal capillary fill time.?There is hemosiderin deposition noted to the anterior lower extremity with torturous veins noted to the anterior medial calf and the lateral ankle with mild nonpitting edema noted to the left lower extremity. Skin no rashes or lesions noted, skin turgor normal and no jaundice General Skin Exam: venous stasis and dermatitis Wound Narrative: Ulceration left anterior lower extremity has healed. No signs of infection. There is hemosiderin deposition noted to the anterior lower extremity with torturous veins noted to the anterior medial calf and the lateral ankle. Mild nonpitting edema noted to the left lower extremity well-controlled. Neuro oriented x3 and moves all extremities Debridement Note Debridement Note No debridement was completed: No debridement was completed today Post-Debridement Measurements and Additional Note: Post-Debridement Measurements/Treatment - Nurse 1 - General Ulcer Assessment Start: 06/04/22 08:36 Freq: Status: Active Protocol: MACEY Activity Type Activity Date Activity User E-sign Co-sign Detail Recorded Client Recorded Date Recorded By Document 06/04/22 08:36 TARAH [id number] 06/04/22 08:37 KR Document 06/11/22 08:59 AK [id number] 06/11/22 09:01 AK 06/04/22 06/11/22 08:36 08:59 - Today's Visit Information Type of service Follow-up Visit Follow-up Visit (Physician/FAMILY PRESERVATION OFFICER (Physician/FAMILY PRESERVATION OFFICER ) ) Arrival Mode Ambulatory Ambulatory Patient Identification Verified (Name & Yes Yes ) Vital Signs Temperature (97.8 F-99.1 F) 97.0 F L 97.7 F L Temperature Source Temporal Temporal Pulse Rate (60-100) 73 65 Pulse Location Monitor Monitor Blood Pressure (90/60-120/80) 137/84 H 138/91 H Blood Pressure Mean (mm Hg) 101 106 Source Manual Monitor Position Semi-Fowlers Sitting Blood Pressure Location Left Arm Right Arm History Since Last Visit- (Skip if this is Patient's initial visit) Have you changed medications since your No No last visit? Any new allergies or adverse reactions No No Had a fall/change in ADL's that may No No increase risk of falls Signs or symptoms of abuse and/or No No neglect since last visit Have you been in the hospital since your No No last visit? Has dressing in place as prescribed Yes Yes Has compression in place as prescribed Yes Yes Has offloadiing in place as prescribed N/A N/A Experienced any changes in pain level or No No management Left Footwear Regular Shoe Regular Shoe Right Footwear Regular Shoe Regular Shoe Pain Scale: 0-10 Numeric Is Patient Pain Free? Yes Yes - Nurse 1 - General Ulcer Measurement Start: 06/04/22 08:36 Freq: Status: Active Protocol: Activity Type Activity Date Activity User E-sign Co-sign Detail Recorded Client Recorded Date Recorded By Document 06/04/22 08:36 TARAH [id number] 06/04/22 08:37 KR Document 06/11/22 08:59 AK [id number] 06/11/22 09:01 AK 06/04/22 06/11/22 08:36 08:59 Wound Center Nurse 1 #1 Left Martinez -Current Size (cm) - Length 0.6 0.1 -Current Size (cm) - Width 0.5 0.1 -Current Size (cm) - Depth 0.1 0.1 -Total Square Cm 0.30 0.01 -Exudate Amt None Present Small -Exudate Type Serosanguineous Serosanguineous -Wound Margin Distinct, Distinct, Outline Outline Attached Attached -Granulation Amt Large (67-100%) Medium (34-66%) -Granulation Quality Red [place] -Slough/Fibrin No -Necrosis Amt None Present (0 None Present (0 %) %) -Texture (Kathryn-wound Skin Appearance) Assessed, Assessed, Scarring Scarring -Moisture (Kathryn-wound Skin Appearance) No Abnormality, No Abnormality, Assessed Assessed -Color (Kathryn-wound Skin Appearance) No Abnormality, No Abnormality, Assessed Assessed -Temperature (Kathryn-wound Skin No Abnormality No Abnormality Appearance) (Pt Warm) (Pt Warm) -Tenderness on Palpation (Kathryn-wound No No Skin Appearance) -Ulcer Cleansing Soap and Water Rinsed/ Irrigated with Saline -Foul Odor after Cleansing No -Anesthetic Used 5% Lidocaine 5% Lidocaine Gel Gel Left Calf (cm) 38 Left Ankle (cm) 22 - Nurse 2 - General Ulcer CM Notes Start: 06/04/22 08:36 Freq: Status: Active Protocol: Activity Type Activity Date Activity User E-sign Co-sign Detail Recorded Client Recorded Date Recorded By Document 06/04/22 11:57 SONIA [id number] 06/04/22 11:58 PL 06/04/22 11:57 Wound Center Nurse 2 -Time 08:52 -Correct Patient Yes -Correct Side, Site, Position Yes -Correct Procedure Yes -Procedure Performed Yes -Type of Procedure Debridement -Clinical Debridement Subcutaneous -Tissue Removed Subcutaneous -Post Debridement (cm) - Length 0.6 -Post Debridement (cm) - Width 0.4 -Post Debridement (cm) - Depth 0.1 -Total Square (Post) (cm) 0.24 -Area of Debridement (cm) - Length 0.6 -Area of Debridement (cm) - Width 0.4 -Total Square (Area) (cm) 0.24 -Tunneling No -Undermining/Tunneling No -Circular Undermining No -Wound/Ulcer Outcome Not Healed -Ulcer Cleansing Rinsed/ Irrigated with Saline -Foul Odor after Cleansing No -Bioengineered Tissue No -Bleeding Controlled with Pressure -Treatment Response Procedure Tolerated Well -Debridement - Subq, 1st 20sq cm Yes Pain Scale: 0-10 Numeric Is Patient Pain Free? Yes WC - Nurse 3 - General Ulcer D/C NN Start: 06/04/22 08:36 Freq: Status: Active Protocol: Activity Type Activity Date Activity User E-sign Co-sign Detail Recorded Client Recorded Date Recorded By Document 06/04/22 09:12 AGUILAR [id number] 06/04/22 09:13 AGUILAR 06/04/22 09:12 Wound Care Nurse 3 #1 Left Martinez -Ulcer Cleansing Rinsed/ Irrigated with Saline -Foul Odor after Cleansing No -Negative Pressure Wound Therapy N/A -Other Dressing collagen and foam Left -Multi-Layered Wrap Application Multi-Layer Comp - Left ($) Pain Scale: 0-10 Numeric Is Patient Pain Free? Yes WC - Visit Discharge Discharge Condition Stable Ambulatory Status Ambulatory Transportation Private Auto Medication Reconcilliation completed & Yes provided to patient/care provider Clinical Summary of Care Provided Yes Assessment/Plan Assessment/Plan (1) Non-pressure chronic ulcer of left calf with fat layer exposed: CODE(S): L97.222 - Non-pressure chronic ulcer of left calf with fat layer exposed (2) Venous insufficiency (chronic) (peripheral): CODE(S): I87.2 - Venous insufficiency (chronic) (peripheral) (3) Varicose veins of left leg with edema: CODE(S): I83.892 - Varicose veins of left lower extremity with other complications PLAN: Plan Patient seen and evaluated It is noted he has hemosiderin deposition to the anterior lower extremity with torturous veins noted to the anterior medial calf and the lateral ankle. His mild nonpitting edema to the left lower extremity is well controlled today with compression dressing.? Left anterior lower extremity ulceration has healed today with full epithelialization. No signs of infection. He was instructed to continue with compression stockings. Prescription was filled out to obtain compression stockings 20 to 30 mmHg recommended. Double Tubigrip stocking applied to the left lower extremity today. Patient saw Dr. Wu, vascular specialist who recommended aggressive compression to address his chronic venous insufficiency with torturous varicose veins.? Patient had appointment with Dr. Wu for venous studies today 06/11/2022. Patient instructed to continue to elevate lower extremities at all times of rest.? And continue with compression stockings. At this time he is healed and will be discharged from the wound care center. He may follow-up with the [facility] for any foot or ankle problems or return to the wound care center for any wounds. Note: [employer] speech recognition shipping receiving clerk software was used to create portions of this document. Sound-alike and misspelled words, as well as other shipping receiving clerk errors may be contained in the documentation.?
== END 2022-06-11 15:48 | disposition home or self-care (01) ==
LOC: WC 09:15
PROVIDERS: PCP Family Medicine; Visit Provider Student in an Organized Health Care Education/Training Program
DX: I83.022 Varicose veins of left lower extremity with ulcer of calf (principal); L97.222 Non-pressure chronic ulcer of left calf with fat layer exposed; R60.9 Edema, unspecified
CPT/HCPCS: 11042; 29581; 99213; G0463

== ENCOUNTER → 2022-06-11 | Outpatient (CLI) | payer OTHER, SELFPAY ==
--- NOTE | 2022-06-11 07:37 | VDLE_ITS ---
Reason For Study: Swelling RIGHT LEFT CFV is compressible, spontaneous, phasic, GSV is normal. competent and demonstrates normal CFV is compressible, spontaneous, phasic, augmentation. competent, and demonstrates normal Procedure augmentation. This is a venous duplex using B-mode, color FV is compressible, spontaneous, phasic, flow and spectral Doppler. competent and demonstrates normal Exam performed in department. augmentation. The exam was diagnostic. POP V is compressible, spontaneous, phasic, competent and demonstrates normal augmentation. T/P Trunk is compressible. PTV is compressible. LT PerV is compressible. SFJ is competent and measures 0.90 x 0.96 cm. GSV proximal thigh measures 0.70 x 0.79 cm. GSV at knee measures 1.02 x 1.22 cm. GSV INCOMPETENT throughout for greater than 0.5 seconds. SSV proximal calf is competent and measures 0.25 x 0.28 cm. Lt bottom sander at medial proximal calf has a reflux time of >1 sec. Multple Lt Calf Varicose Veins reflux time >1 sec. VL/Venous Duplex US, Unilateral Interpretation Summary Deep veins of the left lower extremity are patent and compressible segmentally. There is no evidence of left lower extremity deep vein thrombosis. The left great saphenous vein bianca ears patent and compressible segmentally. Positive for reflux throughout the left great saphenous vein, calf bottom sander a nd varicose veins Ordering Physician: Rell Wu Performed By: Ashu Charles, RVT
== END | disposition home or self-care (01) ==
LOC: CVS 07:36
PROVIDERS: PCP Family Medicine; Visit Provider Surgery Trauma Surgery
DX: I87.2 Venous insufficiency (chronic) (peripheral) (principal); M79.89 Other specified soft tissue disorders
CPT/HCPCS: 93971